=== PATIENT | female | born 1960 | race Asian ===

== ENCOUNTER → 2016-09-21 | Outpatient (CLI) | payer OTHER ==
[2016-09-21 07:47] LABS: BASOPHIL % 0.9 % (0-2); PLATELET COUNT 298 x10^3mcL (130-400); RED CELL DISTRIBUTION WIDTH 13.6 % (11.5-14.5)
[2016-09-21 08:45] LABS: ALKALINE PHOSPHATASE 70 U/L (46-116); ALT/SGPT 26 U/L (14-59); AST/SGOT 20 U/L (15-37); BILIRUBIN TOTAL 0.3 mg/dL (0.20-1.00); CARBON DIOXIDE 29.4 mmol/L (21-32); CHLORIDE SERUM 104 mmol/L (98-107); CREATININE SERUM 0.8 mg/dL (0.6-1.0); GFR1 > 60 mL/min; GLUCOSE SERUM 114 mg/dL (74-106); POTASSIUM SERUM 3.3 mmol/L (3.5-5.1); SODIUM SERUM 141 mmol/L (136-145); TOTAL PROTEIN, SERUM 8.9 g/dL (6.4-8.2)
[2016-09-21 08:46] LABS: C REACTIVE PROTEIN < 0.2 mg/dL (<=0.9)
[2016-09-21 09:00] LABS: ERYTHROCYTE SED RATE 38 mm/hr (0-30)
[2016-09-22 09:05] LABS: VITAMIN D 25-HYDROXY 34.4 ng/mL (30.0-100.0)
== END | disposition home or self-care (01) ==
LOC: LB 07:28
DX: M06.9 Rheumatoid arthritis, unspecified (principal)

== ENCOUNTER → 2016-10-04 | Outpatient (CLI) | payer OTHER | END | disposition home or self-care (01) | LOC: LB 07:21 | DX: M06.9 Rheumatoid arthritis, unspecified (principal) | CPT/HCPCS: 82785; 86225 ==

== ENCOUNTER → 2016-12-05 | Outpatient (CLI) | payer OTHER ==
[2016-12-05 07:49] LABS: PLATELET COUNT 325 x10^3mcL (130-400); RED CELL DISTRIBUTION WIDTH 13.5 % (11.5-14.5)
[2016-12-05 08:17] LABS: ALBUMIN 3.9 g/dL (3.4-5.0); ALKALINE PHOSPHATASE 69 U/L (46-116); ALT/SGPT 29 U/L (14-59); AST/SGOT 18 U/L (15-37); BILIRUBIN DIRECT 0.12 mg/dL (0.0-0.2); BILIRUBIN TOTAL 0.4 mg/dL (0.20-1.00); CALCIUM 8.8 mg/dL (8.5-10.1); CARBON DIOXIDE 30.2 mmol/L (21-32); CHLORIDE SERUM 101 mmol/L (98-107); CREATININE SERUM 0.6 mg/dL (0.6-1.0); GFR1 > 60 mL/min; GLUCOSE SERUM 122 mg/dL (74-106); HDL CHOLESTEROL 57 mg/dL (40-60); POTASSIUM SERUM 3.6 mmol/L (3.5-5.1); SODIUM SERUM 142 mmol/L (136-145); TRIGLYCERIDES 96 mg/dL (<150)
[2016-12-05 08:18] LABS: CHOLESTEROL 216 mg/dL (<200); CHOLESTEROL/HDL RATIO 3.8; TOTAL PROTEIN, SERUM 9.3 g/dL (6.4-8.2)
== END | disposition home or self-care (01) ==
LOC: LB 07:11
PROVIDERS: Internal Medicine
DX: Z00.00 Encounter for general adult medical examination without abnormal findings (principal)

== ENCOUNTER → 2016-12-14 | Outpatient (CLI) | payer OTHER | END | disposition home or self-care (01) | LOC: MA 09:06 | PROC: BH02ZZZ Plain Radiography of Bilateral Breasts (ICD-10-PCS; principal; 2016-12-14) | DX: Z12.31 Encounter for screening mammogram for malignant neoplasm of breast (principal) | CPT/HCPCS: G0204 ==

== ENCOUNTER → 2017-01-15 | Outpatient (CLI) | payer OTHER ==
[2017-01-15 08:50] LABS: BASOPHIL % 0.8 % (0-2); PLATELET COUNT 360 x10^3mcL (130-400); RED CELL DISTRIBUTION WIDTH 14.3 % (11.5-14.5)
[2017-01-15 08:53] LABS: ALBUMIN 3.6 g/dL (3.4-5.0); ALKALINE PHOSPHATASE 63 U/L (46-116); ALT/SGPT 34 U/L (14-59); AST/SGOT 24 U/L (15-37); BILIRUBIN TOTAL 0.43 mg/dL (0.20-1.00); C REACTIVE PROTEIN 0.7 mg/dL (<=0.9); CALCIUM 8.8 mg/dL (8.5-10.1); CARBON DIOXIDE 31.5 mmol/L (21-32); CHLORIDE SERUM 104 mmol/L (98-107); CREATININE SERUM 0.8 mg/dL (0.6-1.0); GFR1 > 60 mL/min; GLUCOSE SERUM 131 mg/dL (74-106); SODIUM SERUM 143 mmol/L (136-145)
[2017-01-15 09:19] LABS: POTASSIUM SERUM 2.8 mmol/L (3.5-5.1); TOTAL PROTEIN, SERUM 9.2 g/dL (6.4-8.2)
[2017-01-15 16:56] LABS: ERYTHROCYTE SED RATE 57 mm/hr (0-30)
== END | disposition home or self-care (01) ==
LOC: LB 07:31
DX: M06.9 Rheumatoid arthritis, unspecified (principal)

== ENCOUNTER → 2017-02-23 | Outpatient (CLI) | payer OTHER ==
[2017-02-23 13:47] LABS: ALBUMIN 3.7 g/dL (3.4-5.0); ALKALINE PHOSPHATASE 85 U/L (46-116); ALT/SGPT 29 U/L (14-59); AST/SGOT 38 U/L (15-37); BILIRUBIN TOTAL 0.34 mg/dL (0.20-1.00); CALCIUM 9.4 mg/dL (8.5-10.1); CARBON DIOXIDE 29.2 mmol/L (21-32); CHLORIDE SERUM 100 mmol/L (98-107); CREATININE SERUM 0.9 mg/dL (0.6-1.0); GFR1 > 60 mL/min; GLUCOSE SERUM 171 mg/dL (74-106); POTASSIUM SERUM 3.7 mmol/L (3.5-5.1); SODIUM SERUM 138 mmol/L (136-145)
[2017-02-23 13:48] LABS: TOTAL PROTEIN, SERUM 9.7 g/dL (6.4-8.2)
== END | disposition home or self-care (01) ==
LOC: LB 13:10
DX: E87.6 Hypokalemia (principal)

== ENCOUNTER → 2017-06-25 | Outpatient (CLI) | payer OTHER ==
[2017-06-25 09:42] LABS: BASOPHIL % 0.7 % (0-2)
[2017-06-25 09:47] LABS: PLATELET COUNT 460 x10^3mcL (130-400); RED CELL DISTRIBUTION WIDTH 15.1 % (11.5-14.5)
[2017-06-25 09:59] LABS: ALBUMIN 3.5 g/dL (3.4-5.0); ALKALINE PHOSPHATASE 77 U/L (46-116); ALT/SGPT 20 U/L (14-59); AST/SGOT 16 U/L (15-37); BILIRUBIN TOTAL 0.2 mg/dL (0.20-1.00); C REACTIVE PROTEIN 2.2 mg/dL (<=0.9); CARBON DIOXIDE 28.2 mmol/L (21-32); CHLORIDE SERUM 102 mmol/L (98-107); CREATININE SERUM 0.7 mg/dL (0.6-1.0); GFR1 > 60 mL/min; GLUCOSE SERUM 116 mg/dL (74-106); SODIUM SERUM 140 mmol/L (136-145)
[2017-06-25 10:07] LABS: TOTAL PROTEIN, SERUM 10.5 g/dL (6.4-8.2)
[2017-06-25 10:08] LABS: POTASSIUM SERUM 2.8 mmol/L (3.5-5.1)
[2017-06-25 10:23] LABS: ERYTHROCYTE SED RATE 96 mm/hr (0-30)
== END | disposition home or self-care (01) ==
LOC: LB 07:30
DX: M06.9 Rheumatoid arthritis, unspecified (principal)

== ENCOUNTER → 2017-07-26 | Outpatient (CLI) | payer OTHER | END | disposition home or self-care (01) | LOC: MI 09:11 | PROC: BQ37ZZZ Magnetic Resonance Imaging (MRI) of Right Knee (ICD-10-PCS; principal; 2017-07-26) | DX: M17.0 Bilateral primary osteoarthritis of knee (principal); M17.11 Unilateral primary osteoarthritis, right knee ==

== ENCOUNTER → 2017-08-08 | Outpatient (CLI) | payer OTHER ==
[2017-08-08 08:22] LABS: BASOPHIL % 0.5 % (0-2); PLATELET COUNT 367 x10^3mcL (130-400)
[2017-08-08 08:33] LABS: ALBUMIN 3.7 g/dL (3.4-5.0); ALKALINE PHOSPHATASE 74 U/L (46-116); ALT/SGPT 16 U/L (14-59); AST/SGOT 16 U/L (15-37); BILIRUBIN TOTAL 0.3 mg/dL (0.20-1.00); C REACTIVE PROTEIN 3.2 mg/dL (<=0.9); CALCIUM 8.8 mg/dL (8.5-10.1); CARBON DIOXIDE 28.8 mmol/L (21-32); CHLORIDE SERUM 102 mmol/L (98-107); CREATININE SERUM 0.7 mg/dL (0.6-1.0); GFR1 > 60 mL/min; GLUCOSE SERUM 112 mg/dL (74-106); POTASSIUM SERUM 3.2 mmol/L (3.5-5.1); SODIUM SERUM 138 mmol/L (136-145)
[2017-08-08 08:36] LABS: RED CELL DISTRIBUTION WIDTH 16.7 % (11.5-14.5)
[2017-08-08 08:39] LABS: TOTAL PROTEIN, SERUM 9.9 g/dL (6.4-8.2)
[2017-08-08 09:58] LABS: ERYTHROCYTE SED RATE 83 mm/hr (0-30)
== END | disposition home or self-care (01) ==
LOC: LB 06:55
DX: M06.89 Other specified rheumatoid arthritis, multiple sites (principal)

== ENCOUNTER → 2017-10-23 | Outpatient (CLI) | payer OTHER ==
[2017-10-23 07:38] LABS: BASOPHIL % 0.5 % (0-2)
[2017-10-23 07:40] LABS: ALBUMIN 3.7 g/dL (3.4-5.0); ALKALINE PHOSPHATASE 90 U/L (46-116); ALT/SGPT 15 U/L (14-59); AST/SGOT 15 U/L (15-37); BILIRUBIN TOTAL 0.6 mg/dL (0.20-1.00); C REACTIVE PROTEIN 5.4 mg/dL (<=0.9); CALCIUM 8.3 mg/dL (8.5-10.1); CARBON DIOXIDE 26.4 mmol/L (21-32); CHLORIDE SERUM 101 mmol/L (98-107); CREATININE SERUM 0.7 mg/dL (0.6-1.0); GFR1 > 60 mL/min; GLUCOSE SERUM 133 mg/dL (74-106); POTASSIUM SERUM 3.3 mmol/L (3.5-5.1); SODIUM SERUM 138 mmol/L (136-145)
[2017-10-23 08:23] LABS: PLATELET COUNT 401 x10^3mcL (130-400); RED CELL DISTRIBUTION WIDTH 17.2 % (11.5-14.5)
[2017-10-23 13:32] LABS: ERYTHROCYTE SED RATE 87 mm/hr (0-30)
== END | disposition home or self-care (01) ==
LOC: LB 07:04
DX: M06.9 Rheumatoid arthritis, unspecified (principal)

== ENCOUNTER → 2018-02-06 | Outpatient (CLI) | payer OTHER ==
[2018-02-06 07:46] LABS: ALKALINE PHOSPHATASE 77 U/L (46-116); ALT/SGPT 32 U/L (14-59); AST/SGOT 22 U/L (15-37); BILIRUBIN DIRECT 0.12 mg/dL (0.0-0.2); BILIRUBIN TOTAL 0.4 mg/dL (0.20-1.00); CALCIUM 8.8 mg/dL (8.5-10.1); CHLORIDE SERUM 103 mmol/L (98-107); CHOLESTEROL 172 mg/dL (<200); CHOLESTEROL/HDL RATIO 3.3; CREATININE SERUM 0.7 mg/dL (0.6-1.0); GFR1 > 60 mL/min; GLUCOSE SERUM 135 mg/dL (74-106); HDL CHOLESTEROL 52 mg/dL (40-60); POTASSIUM SERUM 3.3 mmol/L (3.5-5.1); SODIUM SERUM 140 mmol/L (136-145); TRIGLYCERIDES 102 mg/dL (<150)
[2018-02-06 07:47] LABS: TOTAL PROTEIN, SERUM 10.2 g/dL (6.4-8.2)
[2018-02-06 08:50] LABS: ERYTHROCYTE SED RATE 72 mm/hr (0-30)
[2018-02-06 08:54] LABS: BASOPHIL % 0.7 % (0-2); PLATELET COUNT 372 x10^3mcL (130-400)
[2018-02-06 08:57] LABS: RED CELL DISTRIBUTION WIDTH 17.7 % (11.5-14.5)
[2018-02-07 09:17] LABS: microalbumin:creatinine ratio 575.7 (0.0-30.0)
== END | disposition home or self-care (01) ==
LOC: LB 07:05
PROVIDERS: Internal Medicine
DX: Z00.00 Encounter for general adult medical examination without abnormal findings (principal); M06.9 Rheumatoid arthritis, unspecified

== ENCOUNTER → 2018-02-13 | Outpatient (CLI) | payer OTHER | END | disposition home or self-care (01) | LOC: MA 09:06 | PROC: BH02ZZZ Plain Radiography of Bilateral Breasts (ICD-10-PCS; principal; 2018-02-13) | DX: Z12.31 Encounter for screening mammogram for malignant neoplasm of breast (principal) | CPT/HCPCS: 77066 ==

== ENCOUNTER → 2018-04-12 | Outpatient (CLI) | payer OTHER ==
[2018-04-12 07:33] LABS: BASOPHIL % 0.6 % (0-2)
[2018-04-12 07:37] LABS: PLATELET COUNT 410 x10^3mcL (130-400); RED CELL DISTRIBUTION WIDTH 14.7 % (11.5-14.5)
[2018-04-12 07:56] LABS: ALBUMIN 3.6 g/dL (3.4-5.0); ALKALINE PHOSPHATASE 87 U/L (46-116); ALT/SGPT 13 U/L (14-59); AST/SGOT 14 U/L (15-37); BILIRUBIN TOTAL 0.42 mg/dL (0.20-1.00); C REACTIVE PROTEIN 4.8 mg/dL (<=0.9); CALCIUM 9.1 mg/dL (8.5-10.1); CARBON DIOXIDE 27.9 mmol/L (21-32); CHLORIDE SERUM 101 mmol/L (98-107); CREATININE SERUM 0.8 mg/dL (0.6-1.0); GFR1 > 60 mL/min; GLUCOSE SERUM 141 mg/dL (74-106); POTASSIUM SERUM 3.6 mmol/L (3.5-5.1); SODIUM SERUM 138 mmol/L (136-145)
[2018-04-12 08:03] LABS: TOTAL PROTEIN, SERUM 10.4 g/dL (6.4-8.2)
[2018-04-12 09:48] LABS: ERYTHROCYTE SED RATE 86 mm/hr (0-30)
[2018-04-13 09:05] LABS: VITAMIN D 25-HYDROXY 45.1 ng/mL (30.0-100.0)
[2018-04-13 10:19] LABS: CA ANTIGEN 27-29 17.8 U/mL (0.0-38.6)
== END | disposition home or self-care (01) ==
LOC: LB 06:55
DX: M06.9 Rheumatoid arthritis, unspecified (principal)
CPT/HCPCS: 86300

== ENCOUNTER → 2018-04-26 | Outpatient (CLI) | payer OTHER | END | disposition home or self-care (01) | LOC: RD 09:31 | DX: C50.511 Malignant neoplasm of lower-outer quadrant of right female breast (principal) ==

== ENCOUNTER → 2018-07-10 | Outpatient (CLI) | payer OTHER ==
[2018-07-10 07:28] LABS: BASOPHIL % 1.3 % (0-2); PLATELET COUNT 376 x10^3mcL (130-400)
[2018-07-10 07:45] LABS: RED CELL DISTRIBUTION WIDTH 16.9 % (11.5-14.5)
[2018-07-10 07:50] LABS: ALBUMIN 3.7 g/dL (3.4-5.0); ALKALINE PHOSPHATASE 98 U/L (46-116); ALT/SGPT 27 U/L (14-59); AST/SGOT 17 U/L (15-37); BILIRUBIN TOTAL 0.4 mg/dL (0.20-1.00); C REACTIVE PROTEIN 2.4 mg/dL (<=0.9); CALCIUM 8.9 mg/dL (8.5-10.1); CARBON DIOXIDE 30.7 mmol/L (21-32); CHLORIDE SERUM 104 mmol/L (98-107); CREATININE SERUM 0.7 mg/dL (0.6-1.0); GFR1 > 60 mL/min; GLUCOSE SERUM 134 mg/dL (74-106); POTASSIUM SERUM 3.3 mmol/L (3.5-5.1); SODIUM SERUM 143 mmol/L (136-145)
[2018-07-10 08:04] LABS: ERYTHROCYTE SED RATE 73 mm/hr (0-30); TOTAL PROTEIN, SERUM 9.8 g/dL (6.4-8.2)
== END | disposition home or self-care (01) ==
LOC: LB 06:47
DX: M06.9 Rheumatoid arthritis, unspecified (principal)

== ENCOUNTER → 2018-08-27 | Outpatient (CLI) | payer OTHER | END | disposition home or self-care (01) | LOC: LB 07:34 | DX: C50.911 Malignant neoplasm of unspecified site of right female breast (principal) | CPT/HCPCS: 86300 ==

== ENCOUNTER → 2018-11-01 | Outpatient (CLI) | payer OTHER ==
[2018-11-01 07:44] LABS: ALBUMIN 3.5 g/dL (3.4-5.0); ALKALINE PHOSPHATASE 104 U/L (46-116); ALT/SGPT 66 U/L (14-59); AST/SGOT 35 U/L (15-37); BILIRUBIN TOTAL 0.4 mg/dL (0.20-1.00); C REACTIVE PROTEIN 3.2 mg/dL (<=0.9); CALCIUM 9.1 mg/dL (8.5-10.1); CARBON DIOXIDE 31.2 mmol/L (21-32); CHLORIDE SERUM 102 mmol/L (98-107); CREATININE SERUM 0.6 mg/dL (0.6-1.0); GFR1 > 60 mL/min; GLUCOSE SERUM 153 mg/dL (74-106); POTASSIUM SERUM 3.1 mmol/L (3.5-5.1); SODIUM SERUM 143 mmol/L (136-145)
[2018-11-01 07:48] LABS: TOTAL PROTEIN, SERUM 9.2 g/dL (6.4-8.2)
[2018-11-01 08:00] LABS: BASOPHIL % 0.3 % (0-2)
[2018-11-01 08:05] LABS: PLATELET COUNT 404 x10^3mcL (130-400); RED CELL DISTRIBUTION WIDTH 16.4 % (11.5-14.5)
[2018-11-01 10:51] LABS: ERYTHROCYTE SED RATE 104 mm/hr (0-30)
== END | disposition home or self-care (01) ==
LOC: LB 07:06
DX: M06.89 Other specified rheumatoid arthritis, multiple sites (principal)

== ENCOUNTER → 2019-02-03 | Outpatient (CLI) | payer OTHER ==
[2019-02-03 08:00] LABS: BASOPHIL % 0.8 % (0-2); PLATELET COUNT 379 x10^3mcL (130-400)
[2019-02-03 08:01] LABS: RED CELL DISTRIBUTION WIDTH 15.9 % (11.5-14.5)
[2019-02-03 08:04] LABS: ALBUMIN 3.8 g/dL (3.4-5.0); ALKALINE PHOSPHATASE 108 U/L (46-116); ALT/SGPT 37 U/L (14-59); AST/SGOT 26 U/L (15-37); BILIRUBIN TOTAL 0.4 mg/dL (0.20-1.00); CALCIUM 8.4 mg/dL (8.5-10.1); CARBON DIOXIDE 29.2 mmol/L (21-32); CHLORIDE SERUM 104 mmol/L (98-107); CREATININE SERUM 0.6 mg/dL (0.6-1.0); GFR1 > 60 mL/min; GLUCOSE SERUM 147 mg/dL (74-106); POTASSIUM SERUM 3.5 mmol/L (3.5-5.1); SODIUM SERUM 141 mmol/L (136-145)
[2019-02-03 08:05] LABS: TOTAL PROTEIN, SERUM 9.2 g/dL (6.4-8.2)
[2019-02-03 08:12] LABS: C REACTIVE PROTEIN 0.7 mg/dL (<=0.9)
[2019-02-03 09:49] LABS: ERYTHROCYTE SED RATE 56 mm/hr (0-30)
== END | disposition home or self-care (01) ==
LOC: LB 07:23
PROVIDERS: Internal Medicine
DX: M06.9 Rheumatoid arthritis, unspecified (principal)
CPT/HCPCS: 82306

== ENCOUNTER → 2019-02-14 | Outpatient (CLI) | payer OTHER | END | disposition home or self-care (01) | LOC: MA 08:13 | PROC: BH01ZZZ Plain Radiography of Left Breast (ICD-10-PCS; principal; 2019-02-14) | DX: C50.911 Malignant neoplasm of unspecified site of right female breast (principal); Z85.3 Personal history of malignant neoplasm of breast | CPT/HCPCS: 77065 ==

== ENCOUNTER → 2019-02-27 | Outpatient (CLI) | payer OTHER ==
[2019-02-27 13:49] LABS: BASOPHIL % 0.5 % (0-2); PLATELET COUNT 362 x10^3mcL (130-400)
[2019-02-27 13:51] LABS: RED CELL DISTRIBUTION WIDTH 15.7 % (11.5-14.5)
[2019-02-27 14:14] LABS: ALBUMIN 3.6 g/dL (3.4-5.0); ALKALINE PHOSPHATASE 108 U/L (46-116); ALT/SGPT 31 U/L (14-59); AST/SGOT 21 U/L (15-37); BILIRUBIN TOTAL 0.4 mg/dL (0.20-1.00); C REACTIVE PROTEIN 1.5 mg/dL (<=0.9); CALCIUM 9.3 mg/dL (8.5-10.1); CARBON DIOXIDE 32.7 mmol/L (21-32); CHLORIDE SERUM 101 mmol/L (98-107); CREATININE SERUM 0.8 mg/dL (0.6-1.0); GFR1 > 60 mL/min; GLUCOSE SERUM 115 mg/dL (74-106); SODIUM SERUM 142 mmol/L (136-145)
[2019-02-27 14:33] LABS: ERYTHROCYTE SED RATE 63 mm/hr (0-30)
[2019-02-27 14:47] LABS: POTASSIUM SERUM 2.9 mmol/L (3.5-5.1); TOTAL PROTEIN, SERUM 9.3 g/dL (6.4-8.2)
== END | disposition home or self-care (01) ==
LOC: LB 07:09
DX: C50.911 Malignant neoplasm of unspecified site of right female breast (principal); Z85.3 Personal history of malignant neoplasm of breast
CPT/HCPCS: 86300; 86480

== ENCOUNTER → 2019-03-27 | Outpatient (CLI) | payer OTHER ==
[2019-03-27 08:05] LABS: CALCIUM 9.5 mg/dL (8.5-10.1); CARBON DIOXIDE 28.8 mmol/L (21-32); CHLORIDE SERUM 102 mmol/L (98-107); CREATININE SERUM 0.7 mg/dL (0.6-1.0); GFR1 > 60 mL/min; GLUCOSE SERUM 139 mg/dL (74-106); POTASSIUM SERUM 3.8 mmol/L (3.5-5.1); SODIUM SERUM 141 mmol/L (136-145); T4(THYROXINE) 12.4 ug/dL (4.7-13.3)
== END | disposition home or self-care (01) ==
LOC: RD 07:10
PROVIDERS: Internal Medicine
DX: M17.0 Bilateral primary osteoarthritis of knee (principal)

== ENCOUNTER → 2019-04-07 | Outpatient (CLI) | payer OTHER | END | disposition home or self-care (01) | LOC: LB 08:17 | DX: C50.911 Malignant neoplasm of unspecified site of right female breast (principal); Z85.3 Personal history of malignant neoplasm of breast ==

== ENCOUNTER → 2019-05-15 | Outpatient (CLI) | payer OTHER ==
[2019-05-15 07:25] LABS: BASOPHIL % 0.4 % (0-2)
[2019-05-15 07:35] LABS: ALBUMIN 3.4 g/dL (3.4-5.0); ALKALINE PHOSPHATASE 86 U/L (46-116); ALT/SGPT 29 U/L (14-59); AST/SGOT 18 U/L (15-37); BILIRUBIN TOTAL 0.3 mg/dL (0.20-1.00); C REACTIVE PROTEIN 3.3 mg/dL (<=0.9); CARBON DIOXIDE 30.9 mmol/L (21-32); CHLORIDE SERUM 103 mmol/L (98-107); CREATININE SERUM 0.6 mg/dL (0.6-1.0); GFR1 > 60 mL/min; GLUCOSE SERUM 132 mg/dL (74-106); POTASSIUM SERUM 3.4 mmol/L (3.5-5.1); SODIUM SERUM 142 mmol/L (136-145)
[2019-05-15 07:37] LABS: TOTAL PROTEIN, SERUM 9.2 g/dL (6.4-8.2)
[2019-05-15 08:00] LABS: PLATELET COUNT 449 x10^3mcL (130-400); RED CELL DISTRIBUTION WIDTH 15.1 % (11.5-14.5)
[2019-05-15 09:28] LABS: ERYTHROCYTE SED RATE 98 mm/hr (0-30)
== END | disposition home or self-care (01) ==
LOC: LB 07:03
DX: M06.9 Rheumatoid arthritis, unspecified (principal)

== ENCOUNTER → 2019-10-31 | Outpatient (CLI) | payer OTHER ==
[2019-10-31 07:44] LABS: ALBUMIN 3.8 g/dL (3.4-5.0); ALKALINE PHOSPHATASE 78 U/L (46-116); ALT/SGPT 49 U/L (14-59); AST/SGOT 30 U/L (15-37); BILIRUBIN TOTAL 0.3 mg/dL (0.20-1.00); CALCIUM 8.9 mg/dL (8.5-10.1); CHLORIDE SERUM 102 mmol/L (98-107); CREATININE SERUM 0.7 mg/dL (0.6-1.0); GFR1 > 60 mL/min; GLUCOSE SERUM 207 mg/dL (74-106); SODIUM SERUM 142 mmol/L (136-145)
[2019-10-31 07:50] LABS: TOTAL PROTEIN, SERUM 9.1 g/dL (6.4-8.2)
[2019-10-31 07:55] LABS: BASOPHIL % 1.2 % (0-2); PLATELET COUNT 337 x10^3mcL (130-400)
[2019-10-31 08:42] LABS: RED CELL DISTRIBUTION WIDTH 16.5 % (11.5-14.5)
== END | disposition home or self-care (01) ==
LOC: LB 06:53
DX: C50.911 Malignant neoplasm of unspecified site of right female breast (principal); Z85.3 Personal history of malignant neoplasm of breast
CPT/HCPCS: 86300

== ENCOUNTER → 2020-04-27 | Outpatient (CLI) | payer OTHER ==
[2020-04-27 08:04] LABS: BASOPHIL % 1.1 % (0.2-1.3)
[2020-04-27 08:08] LABS: PLATELET COUNT 485 x10^3mcL (179-408); RED CELL DISTRIBUTION WIDTH 16.2 % (12.3-17.7)
[2020-04-27 08:10] LABS: ALBUMIN 3.7 g/dL (3.4-5.0); ALKALINE PHOSPHATASE 91 U/L (46-116); ALT/SGPT 49 U/L (14-59); AST/SGOT 25 U/L (15-37); BILIRUBIN TOTAL 0.37 mg/dL (0.20-1.00); CALCIUM 9.6 mg/dL (8.5-10.1); CARBON DIOXIDE 27.8 mmol/L (21-32); CHLORIDE SERUM 100 mmol/L (98-107); CREATININE SERUM 0.6 mg/dL (0.6-1.0); GFR1 > 60 mL/min; GLUCOSE SERUM 173 mg/dL (74-106); POTASSIUM SERUM 3.3 mmol/L (3.5-5.1); SODIUM SERUM 138 mmol/L (136-145)
== END | disposition home or self-care (01) ==
LOC: LB 06:37
DX: C50.911 Malignant neoplasm of unspecified site of right female breast (principal); Z85.3 Personal history of malignant neoplasm of breast
CPT/HCPCS: 86300

== ENCOUNTER → 2020-05-13 | Outpatient (CLI) | payer OTHER | END | disposition home or self-care (01) | LOC: MA 08:17 | PROC: BH02ZZZ Plain Radiography of Bilateral Breasts (ICD-10-PCS; principal; 2020-05-13) | DX: C50.911 Malignant neoplasm of unspecified site of right female breast (principal); Z85.3 Personal history of malignant neoplasm of breast | CPT/HCPCS: 77065 ==

== ENCOUNTER → 2020-06-10 | Outpatient (CLI) | payer OTHER ==
[2020-06-10 07:37] LABS: BASOPHIL % 1.1 % (0.2-1.3)
[2020-06-10 08:01] LABS: PLATELET COUNT 450 x10^3mcL (179-408); RED CELL DISTRIBUTION WIDTH 15.9 % (12.3-17.7)
[2020-06-10 08:05] LABS: ALBUMIN 3.5 g/dL (3.4-5.0); ALKALINE PHOSPHATASE 91 U/L (46-116); ALT/SGPT 43 U/L (14-59); AST/SGOT 31 U/L (15-37); BILIRUBIN DIRECT 0.11 mg/dL (0.0-0.2); BILIRUBIN TOTAL 0.3 mg/dL (0.20-1.00); CALCIUM 8.7 mg/dL (8.5-10.1); CARBON DIOXIDE 30.5 mmol/L (21-32); CHLORIDE SERUM 102 mmol/L (98-107); CREATININE SERUM 0.7 mg/dL (0.6-1.0); GFR1 > 60 mL/min; GLUCOSE SERUM 158 mg/dL (74-106); HDL CHOLESTEROL 49 mg/dL (40-60); POTASSIUM SERUM 3.3 mmol/L (3.5-5.1); SODIUM SERUM 142 mmol/L (136-145); TRIGLYCERIDES 105 mg/dL (<150)
[2020-06-10 08:17] LABS: CHOLESTEROL 226 mg/dL (<200); CHOLESTEROL/HDL RATIO 4.6; TOTAL PROTEIN, SERUM 9.5 g/dL (6.4-8.2)
== END | disposition home or self-care (01) ==
LOC: LB 07:05
PROVIDERS: ATTEND Internal Medicine
DX: Z00.00 Encounter for general adult medical examination without abnormal findings (principal)